=== PATIENT | female | born 1990 | race Caucasian/White ===

== ENCOUNTER 2020-04-21 20:02 | Emergency (ER) | payer MEDICAID ==
--- NOTE | 2020-04-21 21:41 | EDM.PDOC ---
ED HPI GENERAL MEDICAL PROBLEM - General Chief Complaint: General Stated Complaint: SUICIDAL THOUGHTS Time Seen by Provider: 04/21/20 21:00 Source of Information: Reports: Patient, Police History Limitations: Reports: No Limitations - History of Present Illness INITIAL COMMENTS - FREE TEXT/NARRATIVE: Patient called 911 floyd and hung up. She called because she feels lonely and has been having thoughts of hurting herself. Lately she has been feeling overwhelmed, lonely, depressed, and isolated, even more so than before COVID. SHe looked for pills to overdose on , then thought about shooting herself with one of the many guns in the house. Suicide attempt by overdose in high school. She feels she has had depression "all my life". currently her 6month old as well as caring for her other 3 children. Earlier tonight she states she yelled at the kids, they cried and became scared of her. "they are so little and do not deserve to be yelled at". for the past 5 months she has been taking 25mg zoloft daily, and has been taking it for the past few years when not . 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 Denies any ETOH or drug use, denies any physical, emotional, financial abuse. Associated Symptoms: Reports: No Other Symptoms - Related Data Allergies Allergy/AdvReac Type Severity Reaction Status Date / Time Penicillins Allergy Hives Verified 04/21/20 22:45 ED ROS GENERAL - Review of Systems Review Of Systems: See Below Constitutional: Reports: No Symptoms HEENT: Reports: No Symptoms Respiratory: Reports: No Symptoms Cardiovascular: Reports: No Symptoms Endocrine: Reports: No Symptoms GI/Abdominal: Reports: No Symptoms Musculoskeletal: Reports: No Symptoms Skin: Reports: No Symptoms Neurological: Reports: No Symptoms Psychiatric: Reports: Anxiety, Depression, Suicidal Ideation. Denies: Hallucinations ED EXAM, GENERAL - Physical Exam Exam: See Below Exam Limited By: No Limitations General Appearance: Alert, No Apparent Distress Throat/Mouth: Normal Voice Head: Atraumatic Neck: Normal Inspection, Full Range of Motion Respiratory/Chest: No Respiratory Distress Neurological: Alert, Oriented, Normal Cognition Psychiatric: Anxious, Depressed Mood, Flat Affect, Tearful Skin Exam: Warm, Dry Course - Orders/Labs/Meds Orders: Active Orders 24 hr Category Date Time Status Blood Alcohol [ETHANOL BLOOD MEDICAL] [CHEM] Stat Lab 04/21/20 21:55 Ordered CBC WITH AUTO DIFF [HEME] Stat Lab 04/21/20 21:55 Ordered COMPREHENSIVE METABOLIC PN,CMP [CHEM] Stat Lab 04/21/20 21:55 Ordered CORONAVIRUS COVID-19 RAPID [MOLEC] Stat Lab 04/21/20 21:55 Ordered DRUG SCREEN, URINE [URCHEM] Stat Lab 04/21/20 21:55 Ordered - Re-Assessments/Exams Free Text/Narrative Re-Assessment/Exam: 04/22/20 00:11 Patient's enroute to hospital with baby to breastfeed. Will speak to patient and about contract for safety to allow patient to go home. Free Text/Narrative Re-Assessment/Exam: 04/22/20 00:59 Spoke with patient and , both signed contract for safety. She will return if thoughts of suicide return, agrees to this plan. She agrees to reach out for help when she feels overwhelmed and accept help if offered. She will follow up with her PMD about medications. At this time patient is calm and regretting previous suicidal statements. Departure - Departure Time of Disposition: 01:02 Disposition: Home, Self-Care 01 Condition: Good Clinical Impression: Suicidal ideation - Discharge Information *PRESCRIPTION DRUG MONITORING PROGRAM REVIEWED*: No *COPY OF PRESCRIPTION DRUG MONITORING REPORT IN PATIENT KINGS: No Instructions: Persistent Depressive Disorder, Adult, Suicidal Feelings: How to Help Yourself, Helping Someone Who Is Suicidal Referrals: PCP,None [Primary Care Provider] - Forms: ED Department Discharge Additional Instructions: Put your contract for safety on the . Return to Ed for any increased or new concerning symptoms. If you are feeling overwhelmed, please ask for help. Call your counselor Friday. I would try calling your primary doctor tomorrow to ask about dose change as this does not need a face to face visit and someone at the clinic will be traffic operations manager. Seun, Please Remove guns, or hide louise to safe. - My Orders Last 24 Hours: My Active Orders 04/21/20 21:55 Blood Alcohol [ETHANOL BLOOD MEDICAL] [CHEM] Stat CBC WITH AUTO DIFF [HEME] Stat COMPREHENSIVE METABOLIC PN,CMP [CHEM] Stat CORONAVIRUS COVID-19 RAPID [MOLEC] Stat DRUG SCREEN, URINE [URCHEM] Stat - Assessment/Plan Last 24 Hours: My Active Orders 04/21/20 21:55 Blood Alcohol [ETHANOL BLOOD MEDICAL] [CHEM] Stat CBC WITH AUTO DIFF [HEME] Stat COMPREHENSIVE METABOLIC PN,CMP [CHEM] Stat CORONAVIRUS COVID-19 RAPID [MOLEC] Stat DRUG SCREEN, URINE [URCHEM] Stat Plan: Spoke with Tameka CHAPARRO, she feels the patient would not be safe at home as she has guns at home and knows where the keys are. She is not agreeable to admission, but she is a risk to herself. We discussed 72 hour hold and feel that it is the most appropriate at this time. Patient is very angry about the hold, [place] [phone] called and is in route.
== END 2020-04-22 01:15 | disposition home or self-care (01) ==
LOC: LB.ED 20:02
DX: R45.851 Suicidal ideations (principal); Z88.0 Allergy status to penicillin
CPT/HCPCS: 99284; 99285